=== PATIENT | male | born 1955 | race Caucasian/White ===

== ENCOUNTER 2017-11-14 11:31 | Emergency (ER) | payer OTHER ==
[2017-11-14] MEDS ORDERED: KETOROLAC 30 MG/ML INJ ONE (13:04)
[2017-11-14] MEDS ORDERED: HYDROCODONE/APAP 5/325 MG TAB ONE (13:04)
--- NOTE | 2017-11-14 13:56 | RAD REPORT ---
EXAM DESCRIPTION: RAD - Knee Left 3 View - 11/14/2017 1:30 pm CLINICAL HISTORY: knee pain COMPARISON: No comparisons FINDINGS: No fracture or dislocation seen. No suprapatellar joint effusion. Vascular calcifications are noted. Mild soft tissue swelling is seen involving the patellar tendon. IMPRESSION: Soft tissue swelling is seen in the region of the patellar tendon which may indicate ten dinitis.
--- NOTE | 2017-11-14 14:32 | EDPHYS ---
Physician Documentation [facility] Name: Cas Pham Age: 62 yrs Sex: Male : 1955 Arrival Date: 11/14/2017 Time: 11:32 Bed 14 Private MD: ED Physician Bashir Camargo HPI: 11/14 13:30 This 62 yrs old Male presents to ER via Wheelchair with complaints of Unable jr8 to Bend leg. 13:30 The patient presents with decreased range of motion, pain, tenderness. The complaints jr8 affect the left knee. Onset: The symptoms/episode began/occurred acutely, today. Modifying factors: The symptoms are alleviated by nothing. the symptoms are aggravated by movement, weight bearing, bending knee. Associated signs and symptoms: The patient has no apparent associated signs or symptoms. Severity of symptoms: At their worst the symptoms were moderate, in the emergency department the symptoms are unchanged. The patient has not experienced similar symptoms in the past. The patient has not recently seen a physician. Stated that he got up to go do something at the house. Had immediate pain to left knee and decreased ROM with weight bearing pain. Denied trauma to leg . Historical: - Allergies: 11:42 No Known Allergies; aj - PMHx: 11:42 Diabetes - NIDDM; Hypertension; Hyperlipidemia; neuropathy; aj - PSHx: 11:42 Heart Cath; aj - Immunization history:: Adult Immunizations up to date. - Social history:: Smoking status: Patient/guardian denies using tobacco. - Ebola Screening: : Patient negative for fever greater than or equal to 101.5 degrees Fahrenheit, and additional compatible Ebola Virus Disease symptoms Patient denies exposure to infectious person Patient denies travel to an Ebola-affected area in the 21 days before illness onset No symptoms or risks identified at this time. ROS: 13:30 Eyes: Negative for injury, pain, redness, and discharge, ENT: Negative for injury, jr8 pain, and discharge, Neck: Negative for injury, pain, and swelling, Cardiovascular: Negative for chest pain, palpitations, and edema, Respiratory: Negative for shortness of breath, cough, wheezing, and pleuritic chest pain, Abdomen/GI: Negative for abdominal pain, nausea, vomiting, diarrhea, and constipation, Back: Negative for injury and pain, Skin: Negative for injury, rash, and discoloration, Neuro: Negative for headache, weakness, numbness, tingling, and seizure. 13:30 MS/extremity: Positive for decreased range of motion, pain, tenderness, of the left knee. Exam: 13:30 Eyes: Pupils equal round and reactive to light, extra-ocular motions intact. Lids and jr8 lashes normal. Conjunctiva and sclera are non-icteric and not injected. Cornea within normal limits. Periorbital areas with no swelling, redness, or edema. ENT: Nares patent. No nasal discharge, no septal abnormalities noted. Tympanic membranes are normal and external auditory canals are clear. Oropharynx with no redness, swelling, or masses, exudates, or evidence of obstruction, uvula midline. Mucous membranes moist. Neck: Trachea midline, no thyromegaly or masses palpated, and no cervical lymphadenopathy. Supple, full range of motion without nuchal rigidity, or vertebral point tenderness. No Meningismus. Cardiovascular: Regular rate and rhythm with a normal S1 and S2. No gallops, murmurs, or rubs. Normal PMI, no JVD. No pulse deficits. Respiratory: Lungs have equal breath sounds bilaterally, clear to auscultation and percussion. No rales, rhonchi or wheezes noted. No increased work of breathing, no retractions or nasal flaring. Abdomen/GI: Soft, non-tender, with normal bowel sounds. No distension or tympany. No guarding or rebound. No evidence of tenderness throughout. Back: No spinal tenderness. No costovertebral tenderness. Full range of motion. Skin: Warm, dry with normal turgor. Normal color with no rashes, no lesions, and no evidence of cellulitis. Neuro: Awake and alert, GCS 15, oriented to person, place, time, and situation. Cranial nerves II-XII grossly intact. Motor strength 5/5 in all extremities. Sensory grossly intact. Cerebellar exam normal. Normal gait. 13:30 Musculoskeletal/extremity: Extremities: grossly normal except: noted in the left knee: pain, tenderness, lateral aspect left knee, ROM: limited active range of motion, limited passive range of motion, limited active range of motion due to pain, limited passive range of motion due to pain, Circulation is intact in all extremities. Sensation intact. Vital Signs: 11:42 BP 123 / 70; Pulse 91; Resp 16; Temp 99.0; Pulse Ox 94% on R/A; Weight 78.02 kg; Height aj 5 ft. 5 in. (165.10 cm); 13:27 BP 118 / 74; Pulse 80; Resp 16; Temp 98.3; Pulse Ox 99% on R/A; Pain 7/10; ch 14:09 BP 93 / 60; Pulse 81; Resp 16; Pulse Ox 98% on R/A; mh5 11:42 Body Mass Index 28.62 (78.02 kg, 165.10 cm) MDM: 12:42 Patient medically screened. jr8 14:25 Data reviewed: vital signs, nurses notes, radiologic studies, plain films, and as a jr8 result, I will discharge patient. Data interpreted: Pulse oximetry: on room air is 98 %. Interpretation: normal. Counseling: I had a detailed discussion with the patient and/or guardian regarding: the historical points, exam findings, and any diagnostic results supporting the discharge/admit diagnosis, radiology results, the need for outpatient follow up, a orthopedic surgeon, to return to the emergency department if symptoms worsen or persist or if there are any questions or concerns that arise at home. 11/14 11:44 Order name: Knee Left 3 View XRAY 11/14 13:57 Order name: RAD; Complete Time: 14:25 EDMS 11/14 14:25 Order name: Timo wrap-joint; Complete Time: 14:29 jr8 11/14 14:25 Order name: Crutches; Complete Time: 14:29 jr8 Administered Medications: 13:08 Drug: [place] 10 mg-325 mg 1 tabs Route: PO; ch 14:28 Follow up: Response: No adverse reaction; Marked relief of symptoms ch 13:08 Drug: TORadol 60 mg Route: IM; Site: right deltoid; ch 14:28 Follow up: Response: No adverse reaction; Marked relief of symptoms Disposition: 15:15 Co-signature as Attending Physician, Bashir Camargo MD. rn Disposition: 11/14/17 14:30 Discharged to Home. Impression: Pain in left knee, Tendonitis left knee. - Condition is Stable. - Discharge Instructions: Knee Pain. - Prescriptions for Mobic 7.5 mg Oral Tablet - take 1 tablet by ORAL route once daily take with food; 20 tablet. Ultracet 37.5- 325 mg Oral Tablet - take 1 tablet by ORAL route every 6 hours - for up to 5 days; do not exceed 8 tablets per day.; 30 tablet. - Work release form, Medication Reconciliation Form, Thank You Letter, Antibiotic Education, Prescription Opioid Use form. - Follow up: Chencho Alexander MD; When: 1 week; Reason: Recheck today's complaints, Continuance of care, Re-evaluation by your physician. - Problem is new. - Symptoms have improved. Signatures: Dispatcher [employer] EDVilma Vega, RN RN Bianca Leon RN RN dm5 Trinidad Germain RN RN aj Nieto, Roman, MD MD rn Roszak, Josh, CARINA LIM jr8 Corrections: (The following items were deleted from the chart) 14:44 14:30 11/14/2017 14:30 Discharged to Home. Impression: Pain in left knee; Tendonitis dm5 left knee. Condition is Stable. Forms are Medication Reconciliation Form, Thank You Letter, Antibiotic Education, Prescription Opioid Use. Follow up: Chencho Alexander; When: 1 week; Reason: Recheck today's complaints, Continuance of care, Re-evaluation by your physician. Problem is new. Symptoms have improved. jr8
--- NOTE | 2017-11-14 14:32 | ER ---
Nurse's Notes [facility] Name: Cas Pham Age: 62 yrs Sex: Male : 1955 Arrival Date: 11/14/2017 Time: 11:32 Bed 14 Private MD: Diagnosis: Pain in left knee;Tendonitis left knee Presentation: 11/14 11:39 Presenting complaint: Patient states: "I can't bend my left knee since last night, it's aj really painful to walk on." Denies injury or trauma. Mild swelling with no redness to left knee. Patient seated in wheelchair with both legs bent currently. Transition of care: patient was not received from another setting of care. Onset of symptoms was November 13, 2017. Risk Assessment: Do you want to hurt yourself or someone else? Patient reports no desire to harm self or others. Initial Sepsis Screen: Does the patient meet any 2 criteria? No. Patient's initial sepsis screen is negative. Does the patient have a suspected source of infection? No. Patient's initial sepsis screen is negative. Care prior to arrival: None. 11:39 Method Of Arrival: Wheelchair 11:39 Acuity: JARAD 3 aj Triage Assessment: 11:42 General: Appears in no apparent distress. comfortable, Behavior is calm, cooperative, aj appropriate for age. Pain: Complains of pain in left knee Pain currently is 9 out of 10 on a pain scale. Neuro: Level of Consciousness is awake, alert, obeys commands, Oriented to person, place, time, situation, Appropriate for age. Respiratory: Airway is patent Respiratory effort is even, unlabored, Respiratory pattern is regular, symmetrical. Derm: Skin is intact, is healthy with good turgor, Skin is pink, warm \\T\\ dry. normal. Musculoskeletal: Circulation, motion, and sensation intact. Range of motion: intact in all extremities, Swelling present in left knee Reports pain in left knee. Historical: - Allergies: 11:42 No Known Allergies; aj - PMHx: 11:42 Diabetes - NIDDM; Hypertension; Hyperlipidemia; neuropathy; aj - PSHx: 11:42 Heart Cath; aj - Immunization history:: Adult Immunizations up to date. - Social history:: Smoking status: Patient/guardian denies using tobacco. - Ebola Screening: : Patient negative for fever greater than or equal to 101.5 degrees Fahrenheit, and additional compatible Ebola Virus Disease symptoms Patient denies exposure to infectious person Patient denies travel to an Ebola-affected area in the 21 days before illness onset No symptoms or risks identified at this time. Screenin:27 Abuse screen: Denies threats or abuse. Denies injuries from another. Nutritional ch screening: No deficits noted. Tuberculosis screening: No symptoms or risk factors identified. Fall Risk None identified. Assessment: 13:27 General: Appears in no apparent distress. comfortable, Behavior is calm, cooperative, ch appropriate for age. Pain: Complains of pain in left knee Pain currently is 73 out of 10 on a pain scale. Neuro: No deficits noted. Respiratory: Airway is patent Respiratory effort is even, unlabored, Breath sounds are clear bilaterally. GI: No signs and/or symptoms were reported involving the gastrointestinal system. Derm: Skin is pink, warm \\T\\ dry. 14:29 Reassessment: Patient appears in no apparent distress at this time. Patient and/or ch family updated on plan of care and expected duration. Pain level reassessed. Patient is alert, oriented x 3, equal unlabored respirations, skin warm/dry/pink. Patient states feeling better. Patient states symptoms have improved. 14:34 Reassessment: Patient appears in no apparent distress at this time. Patient and/or ch family updated on plan of care and expected duration. Pain level reassessed. Patient is alert, oriented x 3, equal unlabored respirations, skin warm/dry/pink. Vital Signs: 11:42 BP 123 / 70; Pulse 91; Resp 16; Temp 99.0; Pulse Ox 94% on R/A; Weight 78.02 kg; Height aj 5 ft. 5 in. (165.10 cm); 13:27 BP 118 / 74; Pulse 80; Resp 16; Temp 98.3; Pulse Ox 99% on R/A; Pain 7/10; ch 14:09 BP 93 / 60; Pulse 81; Resp 16; Pulse Ox 98% on R/A; mh5 11:42 Body Mass Index 28.62 (78.02 kg, 165.10 cm) ED Course: 11:32 Patient arrived in ED. 11:41 Triage completed. 11:42 Arm band placed on left wrist. Patient placed in waiting room, in a wheelchair, Patient aj notified of wait time. X-ray ordered. 11:48 Howard, Vilma, REY is Primary Nurse. 12:42 Cliff Vann PA is PHCP. jr8 12:42 Bashir Camargo MD is Attending Physician. jr8 13:27 No apparent distress. Resting quietly. 13:27 Patient has correct armband on for positive identification. Bed in low position. Call light in reach. Side rails up X 1. Adult w/ patient. Warm blanket given. 13:27 No provider procedures requiring assistance completed. Patient did not have IV access ch during this emergency room visit. 13:29 X-ray completed. Portable x-ray completed in exam room. Patient tolerated procedure la2 well. 14:26 Chencho Alexander MD is Referral Physician. jr8 14:35 Crutch training done. Timo wrap to left knee. Administered Medications: 13:08 Drug: [place] 10 mg-325 mg 1 tabs Route: PO; 14:28 Follow up: Response: No adverse reaction; Marked relief of symptoms 13:08 Drug: TORadol 60 mg Route: IM; Site: right deltoid; 14:28 Follow up: Response: No adverse reaction; Marked relief of symptoms Outcome: 14:30 Discharge ordered by . jr8 14:40 Discharged to home via wheelchair, with family. 14:40 Condition: stable 14:40 Discharge instructions given to patient, family, Instructed on discharge instructions, follow up and referral plans. medication usage, Demonstrated understanding of instructions, follow-up care, medications, crutch walking, Prescriptions given X 2. 14:44 Patient left the ED. dm5 Signatures: Vilma Howard RN RN Bianca Starr RN RN dm5 Myers, Amanda, RN RN aj Roszak, Josh, PA PA [facility] Milagros Berumen Maura Rodriguez la2
== END 2017-11-14 14:44 | disposition home or self-care (01) ==
LOC: ER 11:31
DX: M76.9 Unspecified enthesopathy, lower limb, excluding foot (principal)
CPT/HCPCS: 96372; 99283

== ENCOUNTER 2018-11-29 23:39 | Emergency (ER) | payer OTHER ==
[2018-11-30 01:43] LABS: Absolute Lymphocytes (CBC) 1.8 K/uL (0.7-4.9); Basophils % 0.9 % (0-1.3); Hematocrit 41.7 % (39.6-49.0); Lymphocytes % 33.5 % (15.3-44.8); MPV 8.3 fL (7.6-11.3); RBC Red Blood Cell Count 4.74 M/uL (4.33-5.43)
[2018-11-30 02:35] LABS: ALT/SGPT 18 U/L (12-78); AST/SGOT 16 U/L (15-37); Albumin 3.7 g/dL (3.4-5.0); Alkaline Phosphatase 79 U/L (45-117); BUN Blood Urea Nitrogen 15 mg/dL (7-18); Bicarbonate 24 mmol/L (21-32); Bilirubin Direct 0.1 mg/dL (0-0.2); Bilirubin Total 0.4 mg/dL (0.2-1.0); Magnesium 2.2 mg/dL (1.8-2.4); NT PRO-BNP 35 pg/mL (<125); Protein, Total 7.5 g/dL (6.4-8.2); Sodium Level 133 mmol/L (136-145); Troponin (Emerg Dept Use Only) < 0.02 ng/mL (0.0-0.045)
[2018-11-30 02:36] LABS: Glucose Level 575 mg/dL (74-106)
--- NOTE | 2018-11-30 03:40 | ER ---
Nurse's Notes [facility] Name: Cas Pham Age: 63 yrs Sex: Male : 1955 Arrival Date: 11/29/2018 Time: 23:41 Bed 16 Private MD: Diagnosis: Chest pain Presentation: 11/30 00:08 Presenting complaint: Patient states: that he is having swelling to left side of chest fc and stiffness in his neck. Started yesterday am. Actually worked all day with it. Transition of care: patient was not received from another setting of care. Onset of symptoms was November 30, 2018. Risk Assessment: Do you want to hurt yourself or someone else? Patient reports no desire to harm self or others. Initial Sepsis Screen: Does the patient meet any 2 criteria? No. Patient's initial sepsis screen is negative. Does the patient have a suspected source of infection? No. Patient's initial sepsis screen is negative. Care prior to arrival: Medication(s) given: Pain reliever at 2300. 00:08 Method Of Arrival: Ambulatory fc 00:08 Acuity: JARAD 3 fc Triage Assessment: 00:12 General: Appears comfortable, Behavior is calm, cooperative, appropriate for age. Pain: fc Complains of pain in left supraclavicular area, left clavicle, anterior aspect of left upper chest and left breast Pain currently is 5 out of 10 on a pain scale. Quality of pain is described as aching, dull, Pain began 1 day ago. Is continuous, Aggravated by increased activity, repositioning. EENT: No deficits noted. Neuro: Level of Consciousness is awake, alert, obeys commands, Oriented to person, place, time, situation, Appropriate for age. Cardiovascular: No deficits noted. Respiratory: No deficits noted. GI: No deficits noted. : No deficits noted. Derm: Skin is pink, warm \T\ dry. Musculoskeletal: Circulation, motion, and sensation intact. Capillary refill < 3 seconds, Range of motion: intact in all extremities, Reports swelling to left chest wall. Historical: - Allergies: 00:11 No Known Allergies; fc - Home Meds: 00:11 Metformin Oral [Active]; fc - PMHx: 00:11 Diabetes - NIDDM; Hypertension; Hyperlipidemia; neuropathy; fc - PSHx: 00:11 Heart Cath; fc - Immunization history:: Last tetanus immunization: up to date Flu vaccine status is unknown. - Social history:: Smoking status: Patient uses tobacco products, chewing tobacco, Patient/guardian denies using alcohol, street drugs. - Ebola Screening: : Patient negative for fever greater than or equal to 101.5 degrees Fahrenheit, and additional compatible Ebola Virus Disease symptoms Patient denies exposure to infectious person Patient denies travel to an Ebola-affected area in the 21 days before illness onset. Screenin:31 Abuse screen: Denies threats or abuse. Denies injuries from another. Nutritional rv screening: No deficits noted. Tuberculosis screening: No symptoms or risk factors identified. Fall Risk None identified. Assessment: 01:30 General: Appears in no apparent distress. uncomfortable, Behavior is calm, cooperative. rv Pain: Complains of pain in chest and anterior aspect of left upper chest. Neuro: Level of Consciousness is awake, alert, obeys commands, Oriented to person, place, time, situation. Cardiovascular: Patient's skin is warm and dry. Respiratory: Airway is patent. GI: No signs and/or symptoms were reported involving the gastrointestinal system. : No signs and/or symptoms were reported regarding the genitourinary system. EENT: No signs and/or symptoms were reported regarding the EENT system. Derm: Skin is intact. Musculoskeletal: Swelling absent. 03:00 Reassessment: Patient appears in no apparent distress at this time. Patient and/or rv family updated on plan of care and expected duration. Pain level reassessed. Patient is alert, oriented x 3, equal unlabored respirations, skin warm/dry/pink. Patient denies pain at this time. Patient states feeling better. Patient states symptoms have improved. Vital Signs: 00:11 BP 152 / 90; Pulse 79; Resp 20; Temp 98.5(O); Pulse Ox 97% on R/A; Weight 79.38 kg (R); fc Height 5 ft. 5 in. (165.10 cm) (R); Pain 5/10; 01:32 BP 143 / 74; Pulse 74; Resp 19; Pulse Ox 95% on R/A; rv 02:30 BP 123 / 72; Pulse 73; Resp 16; Pulse Ox 97% on R/A; rv 04:00 BP 122 / 74; Pulse 76; Resp 15; Pulse Ox 98% on R/A; rv 00:11 Body Mass Index 29.12 (79.38 kg, 165.10 cm) ED Course: 11/29 23:41 Patient arrived in ED. ds1 11/30 00:10 Triage completed. fc 00:11 Arm band placed on Patient placed in waiting room, Patient notified of wait time. fc 01:25 Ed Edwards MD is Attending Physician. pkboubacar 01:30 Milton Silva, RN is Primary Nurse. rv 01:31 Patient has correct armband on for positive identification. Bed in low position. Call rv light in reach. Side rails up X 1. Adult w/ patient. sales driver on. Pulse ox on. NIBP on. 01:31 Inserted saline lock: 20 gauge in right antecubital area, using aseptic technique. rv Blood collected. 02:36 Notified ED physician of a critical lab result(s). glucose of 575. fc 02:51 X-ray completed. Portable x-ray completed in exam room. Patient tolerated procedure kw well. 02:52 XRAY Chest (1 view) In Process Unspecified. EDMS 03:59 No provider procedures requiring assistance completed. IV discontinued, intact, rv bleeding controlled, No redness/swelling at site. Pressure dressing applied. Administered Medications: No medications were administered Outcome: 03:40 Discharge ordered by . pkboubacar 04:00 Discharged to home ambulatory, with family. rv 04:00 Condition: good 04:00 Discharge instructions given to patient, family, Instructed on discharge instructions, follow up and referral plans. Demonstrated understanding of instructions, follow-up care. 04:00 Patient left the ED. rv Signatures: Dispatcher [employer] EDNJ Ed Edwards MD MD pkl Chretien, Felicia, RN RN Corinna Campos ds1 Tammy Davidson Milton Silva, RN RN rv
--- NOTE | 2018-11-30 03:41 | EDPHYS ---
Physician Documentation [facility] Name: Cas Pham Age: 63 yrs Sex: Male : 1955 Arrival Date: 11/29/2018 Time: 23:41 Bed 16 Private MD: ED Physician Ed Edwards HPI: 11/30 01:33 This 63 yrs old Male presents to ER via Ambulatory with complaints of Chest pkl Swelling, Neck Pain. 01:33 The patient or guardian reports chest pain that is located primarily in the substernal pkl area. Onset: today. The pain does not radiate. Associated signs and symptoms: Pertinent positives: swelling left breast and left upper back. The chest pain is described as dull. Historical: - Allergies: 00:11 No Known Allergies; fc - Home Meds: 00:11 Metformin Oral [Active]; fc - PMHx: 00:11 Diabetes - NIDDM; Hypertension; Hyperlipidemia; neuropathy; fc - PSHx: 00:11 Heart Cath; fc - Immunization history:: Last tetanus immunization: up to date Flu vaccine status is unknown. - Social history:: Smoking status: Patient uses tobacco products, chewing tobacco, Patient/guardian denies using alcohol, street drugs. - Ebola Screening: : Patient negative for fever greater than or equal to 101.5 degrees Fahrenheit, and additional compatible Ebola Virus Disease symptoms Patient denies exposure to infectious person Patient denies travel to an Ebola-affected area in the 21 days before illness onset. ROS: 01:33 Eyes: Negative for injury, pain, redness, and discharge, ENT: Negative for injury, pkl pain, and discharge, Neck: Negative for injury, pain, and swelling. 01:33 Cardiovascular: Positive for chest pain. 01:33 Respiratory: Negative for cough, shortness of breath. 01:33 Abdomen/GI: Negative for abdominal pain, nausea, vomiting, and diarrhea. 01:33 Back: Negative for acute changes. 01:33 : Negative for urinary symptoms. 01:33 MS/extremity: Negative for acute changes. 01:33 Skin: Negative for rash. 01:33 Neuro: Negative for altered mental status. Exam: 01:33 Head/Face: Normocephalic, atraumatic. Eyes: Pupils equal round and reactive to light, pkl extra-ocular motions intact. Lids and lashes normal. Conjunctiva and sclera are non-icteric and not injected. Cornea within normal limits. Periorbital areas with no swelling, redness, or edema. ENT: Nares patent. No nasal discharge, no septal abnormalities noted. Tympanic membranes are normal and external auditory canals are clear. Oropharynx with no redness, swelling, or masses, exudates, or evidence of obstruction, uvula midline. Mucous membranes moist. Neck: Trachea midline, no thyromegaly or masses palpated, and no cervical lymphadenopathy. Supple, full range of motion without nuchal rigidity, or vertebral point tenderness. No Meningismus. Chest/axilla: Normal chest wall appearance and motion. Nontender with no deformity. No lesions are appreciated. Cardiovascular: Regular rate and rhythm with a normal S1 and S2. No gallops, murmurs, or rubs. Normal PMI, no JVD. No pulse deficits. Respiratory: Lungs have equal breath sounds bilaterally, clear to auscultation and percussion. No rales, rhonchi or wheezes noted. No increased work of breathing, no retractions or nasal flaring. Abdomen/GI: Soft, non-tender, with normal bowel sounds. No distension or tympany. No guarding or rebound. No evidence of tenderness throughout. Back: No spinal tenderness. No costovertebral tenderness. Full range of motion. Skin: Warm, dry with normal turgor. Normal color with no rashes, no lesions, and no evidence of cellulitis. MS/ Extremity: Pulses equal, no cyanosis. Neurovascular intact. Full, normal range of motion. Neuro: Awake and alert, GCS 15, oriented to person, place, time, and situation. Cranial nerves II-XII grossly intact. Motor strength 5/5 in all extremities. Sensory grossly intact. Cerebellar exam normal. Normal gait. Vital Signs: 00:11 BP 152 / 90; Pulse 79; Resp 20; Temp 98.5(O); Pulse Ox 97% on R/A; Weight 79.38 kg (R); fc Height 5 ft. 5 in. (165.10 cm) (R); Pain 5/10; 01:32 BP 143 / 74; Pulse 74; Resp 19; Pulse Ox 95% on R/A; rv 02:30 BP 123 / 72; Pulse 73; Resp 16; Pulse Ox 97% on R/A; rv 04:00 BP 122 / 74; Pulse 76; Resp 15; Pulse Ox 98% on R/A; rv 00:11 Body Mass Index 29.12 (79.38 kg, 165.10 cm) fc MDM: 01:25 Patient medically screened. pkl 03:39 Data reviewed: vital signs, nurses notes, lab test result(s), EKG, radiologic studies, pkl plain films. ED course: Patient feeling better. Want to go home. 11/30 01:32 Order name: Basic Metabolic Panel; Complete Time: 02:43 pkl 11/30 01:32 Order name: CBC with Diff; Complete Time: 02:43 pkl 11/30 01:32 Order name: LFT's; Complete Time: 02:43 pkl 11/30 01:32 Order name: Magnesium; Complete Time: 02:43 pkl 11/30 01:32 Order name: NT PRO-BNP; Complete Time: 02:43 pkl 11/30 01:32 Order name: PT-INR; Complete Time: 02:43 pkl 11/30 01:32 Order name: Troponin (emerg Dept Use Only); Complete Time: 02:43 pkl 11/30 01:32 Order name: XRAY Chest (1 view) pkl 11/30 01:32 Order name: EKG; Complete Time: 01:33 pkl 11/30 01:32 Order name: Cardiac monitoring; Complete Time: 01:42 pkl 11/30 01:32 Order name: EKG - Nurse/Tech; Complete Time: 01:42 pkl 11/30 01:32 Order name: IV Saline Lock; Complete Time: :42 pkl 11/30 01:32 Order name: Labs collected and sent; Complete Time: :42 pkl 11/30 01:32 Order name: D-Dimer; Complete Time: 02:43 pkl 11/30 01:32 Order name: O2 Per Protocol; Complete Time: :42 pkl 11/30 01:32 Order name: O2 Sat Monitoring; Complete Time: 01:42 pkl Administered Medications: No medications were administered Disposition: 11/30/18 03:40 Discharged to Home. Impression: Chest pain. - Condition is Stable. - Medication Reconciliation Form, Thank You Letter, Antibiotic Education, Prescription Opioid Use, Work release form form. - Follow up: Private Physician; When: 2 - 3 days; Reason: Re-evaluation by your physician. - Problem is new. - Symptoms have improved. Signatures: Dispatcher [employer] EDEd Olvera MD MD pkNeda Day, RN RN Milton Bhardwaj RN RN rv Corrections: (The following items were deleted from the chart) 04:00 03:40 11/30/2018 03:40 Discharged to Home. Impression: Chest pain. Condition is Stable. rv Forms are Medication Reconciliation Form, Thank You Letter, Antibiotic Education, Prescription Opioid Use. Follow up: Private Physician; When: 2 - 3 days; Reason: Re-evaluation by your physician. Problem is new. Symptoms have improved. pkl
[2018-11-30 04:26] VITALS: TEMP 98.5
[2018-11-30 04:31] VITALS: BP 122/74; O2SAT 98
--- NOTE | 2018-11-30 09:28 | RAD REPORT ---
EXAM DESCRIPTION: Moo Single View11/30/2018 2:52 am CLINICAL HISTORY: Chest pain COMPARISON: 2018 FINDINGS: The lungs appear clear of acute infiltrate. The heart is normal size IMPRESSION: No acute abnormalities displayed
--- NOTE | 2018-11-30 10:45 | EKG ---
Test Date: 2018-11-30 Test Time: 01:18:06 [employer] Operator: RV MEASUREMENT RESULTS: Intervals: Rate: 77 CO: 150 QRSD: 90 QT: 380 QTc: 430 [place]: P: 47 CO: 150 QRS: 6 T: 25 INTERPRETIVE STATEMENTS: Normal sinus rhythm Septal infarct, age undetermined Abnormal ECG Compared to ECG 11/11/2014 11:09:29 Myocardial infarct finding now present Left ventricular hypertrophy no longer present Electronically Signed On 11-30-18 10:45:12 CDT by Keven Cabral
== END 2018-11-30 04:00 | disposition home or self-care (01) ==
LOC: ER 23:39
DX: R07.9 Chest pain, unspecified (principal); E11.9 Type 2 diabetes mellitus without complications; Z72.0 Tobacco use
CPT/HCPCS: 36415; 71045; 80048; 80076; 83735; 83880; 84484; 85025; 85379; 85610; 93005; 99284